=== PATIENT | female | born 1965 | race Caucasian/White ===

== ENCOUNTER 2017-04-23 19:56 | Observation (INO) | payer MEDICAID, OTHER ==
[2017-04-23] MEDS ORDERED: Nitroglycerin 0.4 MG Tab.SL SL ONE (20:01)
[2017-04-23] MEDS ORDERED: Aspirin 81 MG Tab.Chew PO ONE (20:01)
[2017-04-23] MEDS ORDERED: Ketorolac 30 MG/ML SDV IVPUSH ONE (20:54)
[2017-04-23] MEDS ORDERED: GI Cocktail Oral Solution 30 ML PO ONE (20:55)
--- NOTE | 2017-04-23 20:58 | EDM.PDOC ---
ED HPI GENERAL MEDICAL PROBLEM - General Chief Complaint: Chest Pain Stated Complaint: chest pain Time Seen by Provider: 04/23/17 19:59 Source of Information: Reports: Patient, Family History Limitations: Reports: No Limitations - History of Present Illness INITIAL COMMENTS - FREE TEXT/NARRATIVE: Patient brought to ER by after experiencing episode of diaphoresis and almost felt like she was going to pass out. Has had anterior chest pain all day. Worse with deep breath. Feels a bit short of breath. No wheeze/cough/URI complaints. No history of similar complaint. Past medical history significant for two spontaneous pneumothoraxes on left side years ago. This does not feel quite like that. She has felt a bit off since last . At that time her lower legs felt tight and achy. Equal bilaterally. Denies redness or swelling. That pain went away but she then had some right hip discomfort. She visited her chiropractor for that. The hip pain has also now resolved. Describes that chest pain as more of a tightness than actual pain. Discomfort does not radiate anywhere. Both ears feel funny too, she cannot describe it more than that. Not actual pain. No fevers/chills. No HEENT symptoms other than her ears feeling "funny". Respiratory as described above. SOB and discomfort does not change with positional changes. Hurts a bit more in the chest to take a deep breath. GI negative for changes as is . No focal neuro changes. Family history + for father who of IA at age 58, and mother who is now in her 80s and has had a stroke. Patient denies any other significant past family history. Former smoker, quit years ago. No one else sick at home[place] Very physical work, carries feed, etc. Notes that she usually has lower than average BP when it is checked. Chest Pain Score (Numeric/FACES): 3 - Related Data Allergies Allergy/AdvReac Type Severity Reaction Status Date / Time No Known Allergies Allergy Verified 04/23/17 20:28 Home Meds: Home Meds Amoxicillin/Clavulanate K [Augmentin 500 MG] 1 tab PO Q12H #20 tablet 06/12/15 [ Rx] Ciprofloxacin/Dexamethasone [Ciprodex Otic Susp] 7.5 ml EARLF BID #1 bottle [Rx] Ibuprofen 800 mg PO Q8H PRN #30 tablet 06/12/15 [Rx] Ibuprofen [Motrin] 400 mg PO Q6H PRN 06/12/15 [History] Past Medical History Respiratory History: Reports: Pneumothorax - Infectious Disease History Infectious Disease History: Reports: Chicken Pox, Pertussis (Whooping Cough) Social & Family History - Family History Cardiac: Reports: [place] Neurological: Reports: CVA - Tobacco Use Smoking Status *Q: Former Smoker Years of Tobacco use: 6 Packs/Tins Daily: 1 Used Tobacco, but Quit: Yes Month Tobacco Last Used: 0 - Caffeine Use Caffeine Use: Reports: Coffee - Alcohol Use Days Per Week of Alcohol Use: 2 Number of Drinks Per Day: 2 Total Drinks Per Week: 4 - Recreational Drug Use Recreational Drug Use: No ED ROS GENERAL - Review of Systems Review Of Systems: See Below Constitutional: Reports: Fatigue, Diaphoresis (describes it as near syncopal episode. ). Denies: Fever, Chills, Weakness, Night Sweats, Decreased Appetite, Weight Loss, Weight Gain HEENT: Reports: Ear Pain (not pain, feels "funny"). Denies: Ear Discharge, Eye Discharge, Eye Pain, Rhinitis, Sinus Problem, Throat Pain, Throat Swelling, Vertigo, Vision Change Respiratory: Reports: Shortness of Breath. Denies: Wheezing, Cough, Sputum, Hemoptysis Cardiovascular: Reports: Chest Pain. Denies: Edema, Lightheadedness, Orthopnea , Palpitations, PND, Syncope GI/Abdominal: Reports: No Symptoms : Reports: No Symptoms Musculoskeletal: Reports: No Symptoms Skin: Reports: No Symptoms Neurological: Reports: No Symptoms Psychiatric: Reports: No Symptoms Hematologic/Lymphatic: Reports: No Symptoms ED EXAM, GENERAL - Physical Exam Exam: See Below General Appearance: Alert, WD/WN, No Apparent Distress Eye Exam: Bilateral Eye: EOMI, Normal Inspection, PERRL Ears: Normal External Exam, Normal Canal, Hearing Grossly Normal, Normal TMs Nose: Normal Inspection Throat/Mouth: Normal Inspection, Normal Lips, Normal Teeth, Normal Gums, Normal Oropharynx, Normal Voice, No Airway Compromise Head: Atraumatic, Normocephalic Neck: Normal Inspection, Supple, Non-Tender, Full Range of Motion. No: Carotid Bruit, Lymphadenopathy (L), Lymphadenopathy (R) Respiratory/Chest: No Respiratory Distress, Lungs Clear, Normal Breath Sounds, No Accessory Muscle Use, Other (chest tender with palpation just lateral to left sternal border. Reproduces pain) Cardiovascular: Normal Peripheral Pulses, Regular Rate, Rhythm, No Edema, No Murmur Peripheral Pulses: 2+: Radial (L), Radial (R), Dorsalis Pedis (L), Dorsalis Pedis (R) GI/Abdominal: Normal Bowel Sounds, Soft, Non-Tender, No Distention, No Mass (Female) Exam: Deferred Rectal (Female) Exam: Deferred Back Exam: Normal Inspection. No: CVA Tenderness (L), CVA Tenderness (R), Paraspinal Tenderness, Vertebral Tenderness, Other Extremities: Normal Inspection, Normal Range of Motion, Non-Tender, No Pedal Edema, Normal Capillary Refill Neurological: Alert, Oriented, Normal Cognition, Normal Gait, Normal Reflexes, No Motor/Sensory Deficits Psychiatric: Normal Affect, Normal Mood Skin Exam: Warm, Dry, Intact, Normal Color EKG INTERPRETATION EKG Date: 04/23/17 Time: 19:59 Rhythm: NSR Rate (Beats/Min): 92 [place]: Normal P-Wave: Present QRS: Normal ST-T: Normal QT: Normal Comparison: NA - No Prior EKG Course - Vital Signs Last Recorded V/S: Last Vital Signs Temp 36.4 C 04/23/17 20:00 Pulse 72 04/23/17 20:41 Resp 20 04/23/17 20:00 BP 129/73 04/23/17 21:28 Pulse Ox 100 04/23/17 20:00 - Orders/Labs/Meds Orders: Active Orders 24 hr Category Date Time Status EKG Documentation Completion [RC] ASDIRECTED Care 04/23/17 20:00 Active Chest 2V [CR] Stat Exams 04/23/17 19:59 Taken UA W/MICROSCOPIC [URIN] Stat Lab 04/23/17 19:59 Uncollected Sodium Chloride 0.9% [Saline Flush] Med 04/23/17 19:59 Active 10 ml FLUSH ASDIRECTED PRN Saline Lock Insert [OM.PC] Stat Oth 04/23/17 19:59 Ordered Medication Orders Sodium Chloride (Saline Flush) 10 ml FLUSH ASDIRECTED PRN PRN Reason: Keep Vein Open Last Admin: 04/23/17 21:12 Dose: 10 ml Labs: Laboratory Tests 04/23/17 04/23/1704/23/17 Range/Units 20:10 20:10 20:10 WBC 6.6 (4.0-10.2) K/uL RBC 4.43 (3.77-5.09) M/uL Hgb 13.3 (11.7-15.5) g/dL Hct 39.9 (34.0-46.0) % MCV 90.1 (84.0-98.0) fL MCH 30.0 (28.2-33.3) pg MCHC 33.3 (31.7-36.0) g/dL RDW 13.9 (11.2-14.1) % Plt Count 312 (150-350) K/uL Neut % (Auto) 39.6 L (45.0-80.0) % Lymph % (Auto) 48.9 (10.0-50.0) % Daniels % (Auto) 8.3 (2.0-14.0) % Eos % (Auto) 2.9 (0.0-5.0) % Baso % (Auto) 0.3 (0.0-2.0) % Neut # (Auto) 2.63 (1.40-7.00) K/uL Lymph # (Auto) 3.25 (0.50-3.50) K/uL Daniels # (Auto) 0.55 (0.00-1.00) K/uL Eos # (Auto) 0.19 (0.00-0.50) K/uL Baso # (Auto) 0.02 (0.00-0.20) K/uL PT 10.2 (9.8-11.7) SEC INR 1.0 D-Dimer, Quantitative (0-400) ng/mL Sodium 140 (136-145) mmol/L Potassium 4.2 (3.5-5.1) mmol/L Chloride 104 (98-107) mmol/L Carbon Dioxide 29.3 (21.0-32.0) mmol/L BUN 11 (7-18) mg/dL Creatinine 1.16 (0.51-1.17) mg/dL Est Cr Clr Drug Dosing 51.63 mL/min Estimated GFR (MDRD) 49 mL/min Glucose 96 (74-106) mg/dL Calcium 8.9 (8.5-10.1) mg/dL Total Bilirubin 0.5 (0.2-1.0) mg/dL AST 18 (15-37) U/L ALT 12 (12-78) U/L Alkaline Phosphatase 77 (46-116) IU/L Creatine Kinase 156 (26-308) U/L Creatine Kinase Index 1.0 (0.0-2.5) % CK-MB (CK-2) 1.60 (0.00-3.60) ng/mL Troponin I 0.000 (0.000-0.056) ng/mL NT-Pro-B Natriuret Pep 31 (0-125) pg/mL Total Protein 7.1 (6.4-8.2) g/dL Albumin 3.8 (3.4-5.0) g/dL 04/23/17 Range/Units 20:10 WBC (4.0-10.2) K/uL RBC (3.77-5.09) M/uL Hgb (11.7-15.5) g/dL Hct (34.0-46.0) % MCV (84.0-98.0) fL MCH (28.2-33.3) pg MCHC (31.7-36.0) g/dL RDW (11.2-14.1) % Plt Count (150-350) K/uL Neut % (Auto) (45.0-80.0) % Lymph % (Auto) (10.0-50.0) % Daniels % (Auto) (2.0-14.0) % Eos % (Auto) (0.0-5.0) % Baso % (Auto) (0.0-2.0) % Neut # (Auto) (1.40-7.00) K/uL Lymph # (Auto) (0.50-3.50) K/uL Daniels # (Auto) (0.00-1.00) K/uL Eos # (Auto) (0.00-0.50) K/uL Baso # (Auto) (0.00-0.20) K/uL PT (9.8-11.7) SEC INR D-Dimer, Quantitative < 100 (0-400) ng/mL Sodium (136-145) mmol/L Potassium (3.5-5.1) mmol/L Chloride (98-107) mmol/L Carbon Dioxide (21.0-32.0) mmol/L BUN (7-18) mg/dL Creatinine (0.51-1.17) mg/dL Est Cr Clr Drug Dosing mL/min Estimated GFR (MDRD) mL/min Glucose (74-106) mg/dL Calcium (8.5-10.1) mg/dL Total Bilirubin (0.2-1.0) mg/dL AST (15-37) U/L ALT (12-78) U/L Alkaline Phosphatase (46-116) IU/L Creatine Kinase (26-308) U/L Creatine Kinase Index (0.0-2.5) % CK-MB (CK-2) (0.00-3.60) ng/mL Troponin I (0.000-0.056) ng/mL NT-Pro-B Natriuret Pep (0-125) pg/mL Total Protein (6.4-8.2) g/dL Albumin (3.4-5.0) g/dL Meds: Medications Generic Name Dose Route Start Last Admin Trade Name Freq PRN Reason Stop Dose Admin Sodium Chloride 10 ml 04/23/17 19:59 04/23/17 21:12 Saline Flush FLUSH 10 ml ASDIRECTED PRN Administration Keep Vein Open Discontinued Medications Generic Name Dose Route Start Last Admin Trade Name Freq PRN Reason Stop Dose Admin Al Hydroxide/Mg Hydroxide 30 ml 04/23/17 20:55 04/23/17 21:12 Gi Cocktail PO 04/23/17 20:56 30 ml ONETIME ONE Administration Aspirin 324 mg 04/23/17 20:01 04/23/17 20:14 Aspirin PO 04/23/17 20:02 324 mg ONETIME ONE Administration Ketorolac Tromethamine 30 mg 04/23/17 20:54 04/23/17 21:12 Toradol IVPUSH 04/23/17 20:55 30 mg ONETIME ONE Administration Nitroglycerin 0.4 mg 04/23/17 20:01 04/23/17 20:14 Nitrostat SL 04/23/17 20:02 0.4 mg ONETIME ONE Administration - Radiology Interpretation Free Text/Narrative:: Chest xray did not show any focal infiltrates or noted pneumo - Re-Assessments/Exams Free Text/Narrative Re-Assessment/Exam: 04/23/17 22:01 All labs within normal range, including DDimer/Trop/CKMB. BP improved after single Nitro SL, however no change in pain. GI cocktail given , no obvious changes. Toradol given. EKG showed no ST changes. Pain reproducible with pressure applied near left sternal border. Suspect musculoskeletal pain more so than cardiac/lung/GI at this time. BP was elevated when first in ER, but that has significantly improved without seeing improvement in pain complaint. Patient may have mild viral prodrome given the general achiness that started 4 days ago. No reported tick exposure from this fall. No pneumo noted on chest film, although it could be possible that she could have a small one that does not show up on the film. Patient is agreeable to being admitted on observation. Will continue cardiac monitoring. Observe for changes. Repeat labs in AM. Departure - Departure Time of Disposition: 22:07 Disposition: Refer to Observation Clinical Impression: Atypical chest pain, Shortness of breath - Discharge Information Referrals: PCP,None [Primary Care Provider] - Forms: ED Department Discharge - Problem List & Annotations (1) Atypical chest pain SNOMED Code(s): 282155013 Code(s): R07.89 - OTHER CHEST PAIN Status: Acute Priority: High Current Visit: Yes Onset Date: 04/23/17 Annotation/Comment:: Uncertain etiology. Initial workup unremarkable. Pain is exacerbated by direct pressure on left chest wall. May be musculo-skeletal in origin. No evidence of repeat pneumo on chest xray. (2) Shortness of breath SNOMED Code(s): 435500513 Code(s): R06.02 - SHORTNESS OF BREATH Status: Acute Priority: Medium Current Visit: Yes Onset Date: ~04/23/17 Annotation/Comment:: Uncertain etiology. Remote smoking history but quit a long time ago. No history of athma. DDimer negative. Has good sats and normal resp rate on room air. - Problem List Review Problem List Initiated/Reviewed/Updated: Yes - My Orders Last 24 Hours: My Active Orders 04/23/17 19:59 Chest 2V [CR] Stat UA W/MICROSCOPIC [URIN] Stat Sodium Chloride 0.9% [Saline Flush] 10 ml FLUSH ASDIRECTED PRN Saline Lock Insert [OM.PC] Stat 04/23/17 20:00 EKG Documentation Completion [RC] ASDIRECTED - Assessment/Plan Admission H&P: Please use this note as an admission H&P Last 24 Hours: My Active Orders 04/23/17 19:59 Chest 2V [CR] Stat UA W/MICROSCOPIC [URIN] Stat Sodium Chloride 0.9% [Saline Flush] 10 ml FLUSH ASDIRECTED PRN Saline Lock Insert [OM.PC] Stat 04/23/17 20:00 EKG Documentation Completion [RC] ASDIRECTED Assessment:: Chest pain, sensation of SOB. Etiology uncertain. Plan: Admit to Obs. Continue cardiac monitoring. Repeat labs in AM. Observe for changes. Consider additional imaging such as chest CT if pain does not improve by morning to more fully rule out pneumothorax/other causes.
[2017-04-23] MEDS: Sodium Chloride 0.9% 10 ML Syringe FLUSH PRN (21:12)
[2017-04-23] MEDS ORDERED: Acetaminophen 325 MG Tab PO PRN (22:18)
[2017-04-23] MEDS ORDERED: predniSONE 20 MG Tab PO ONE (22:20)
[2017-04-24 07:52] LABS: CHLORIDE,CL 105 mmol/L (98-107); SODIUM,NA 138 mmol/L (136-145)
[2017-04-24] MEDS: Sodium Chloride 0.9% 10 ML Syringe FLUSH PRN (08:54)
[2017-04-24 08:58] VITALS: BP 116/68
--- NOTE | 2017-04-24 11:08 | PCM.DCSUM1 ---
Discharge Summary - Hospital Course Brief History: Observed overnight after experiencing atypical chest pain and hypertension - Discharge Data Discharge Date: 04/24/17 Discharge Disposition: Home, Self-Care 01 Condition: Good - Discharge Diagnosis/Problem(s) (1) Atypical chest pain SNOMED Code(s): 435072716 ICD Code: R07.89 - OTHER CHEST PAIN Status: Acute Priority: High Current Visit: Yes Onset Date: 04/23/17 Problem Details: Significantly improved at this time but still present. Uncertain etiology. Initial workup unremarkable. Pain is exacerbated by direct pressure on left chest wall. May be musculo-skeletal in origin. Consider costochondritis. No evidence of repeat pneumo on chest xray. Negative serial Troponin/CKMB. DDimer normal. EKG normal. (2) Shortness of breath SNOMED Code(s): 922758027 ICD Code: R06.02 - SHORTNESS OF BREATH Status: Acute Priority: Medium Current Visit: Yes Onset Date: ~04/23/17 Problem Details: Improved at this time. Patient denies current SOB - Patient Summary/Data Complications: None Hospital Course: Gradual improvement of chest pain and SOB overnight. Still has some constant discomfort that is just to left of sternum. SOB resolved. Pain exacerbated with direct pressure/reproduced. No changes noted on monitor. BP remained normal. Repeat labs unremarkable. - Patient Instructions Diet: Usual Diet as Tolerated Activity: No Lifting Over 10 Pounds, Rest and Relax Today Driving: May Drive Today Showering/Bathing: May Shower Other/Special Instructions: Follow up Sunday at 2pm for recheck and to discuss if any additional workup is indicated. You have an appointment at our hospital clinic. - Discharge Plan Home Medications: Home Meds Ibuprofen [Motrin] 400 mg PO Q6H PRN 06/12/15 [History] Acetaminophen [Tylenol] 650 mg PO Q4H PRN 04/23/17 [History] Patient Handouts: Costochondritis, [id number], Nonspecific Chest Pain Forms: ED Department Discharge Referrals: PCP,None [Primary Care Provider] - - Discharge Summary/Plan Comment DC Time >30 min.: No Discharge Summary/Plan Comment: To follow up as needed if symptoms return/worsen. Otherwise to follow up Sunday at hospital clinic for re-evaluation. - General Info Date of Service: 04/24/17 Admission Dx/Problem (Free Text: Chest pain, SOB. Functional Status: Reports: Pain Controlled Numeric/FACES Score: 2 - Review of Systems General: Reports: No Symptoms HEENT: Reports: No Symptoms Pulmonary: Reports: No Symptoms. Denies: Shortness of Breath Cardiovascular: Reports: Chest Pain. Denies: Palpitations, Dyspnea on Exertion , Orthopnea, Edema, Lightheadedness Gastrointestinal: Reports: No Symptoms Genitourinary: Reports: No Symptoms Musculoskeletal: Reports: No Symptoms Skin: Reports: No Symptoms Neurological: Reports: No Symptoms Psychiatric: Reports: No Symptoms - Patient Data Vitals - Most Recent: Last Vital Signs Temp 36.7 C 04/24/17 08:00 Pulse 71 04/24/17 08:00 Resp 17 04/24/17 08:00 BP 116/68 04/24/17 08:00 Pulse Ox 98 04/24/17 08:00 Weight - Most Recent: 69.127 kg I&O - Last 24 hours: Intake & Output 04/23/17 04/24/17 04/24/17 22:59 06:59 14:59 Intake Total 200 240 Output Total 350 Balance -150 240 Lab Results - Last 24 hrs: Laboratory Results - last 24 hr 04/24/17 04/24/17 Range/Units 07:05 07:05 WBC 4.3 (4.0-10.2) K/uL RBC 4.44 (3.77-5.09) M/uL Hgb 13.1 (11.7-15.5) g/dL Hct 40.4 (34.0-46.0) % MCV 91.0 (84.0-98.0) fL MCH 29.5 (28.2-33.3) pg MCHC 32.4 (31.7-36.0) g/dL RDW 14.0 (11.2-14.1) % Plt Count 282 (150-350) K/uL Neut % (Auto) 80.6 H (45.0-80.0) % Lymph % (Auto) 18.5 (10.0-50.0) % [place] % (Auto) 0.9 L (2.0-14.0) % Eos % (Auto) 0.0 (0.0-5.0) % Baso % (Auto) 0.0 (0.0-2.0) % Neut # (Auto) 3.44 (1.40-7.00) K/uL Lymph # (Auto) 0.79 (0.50-3.50) K/uL [place] # (Auto) 0.04 (0.00-1.00) K/uL Eos # (Auto) 0.00 (0.00-0.50) K/uL Baso # (Auto) 0.00 (0.00-0.20) K/uL Sodium 138 (136-145) mmol/L Potassium 4.2 (3.5-5.1) mmol/L Chloride 105 (98-107) mmol/L Carbon Dioxide 25.2 (21.0-32.0) mmol/L BUN 12 (7-18) mg/dL Creatinine 0.71 (0.51-1.17) mg/dL Est Cr Clr Drug Dosing 84.35 mL/min Estimated GFR (MDRD) > 60 mL/min Glucose 145 H (74-106) mg/dL Calcium 8.8 (8.5-10.1) mg/dL Total Bilirubin 0.5 (0.2-1.0) mg/dL AST 15 (15-37) U/L ALT 10 L (12-78) U/L Alkaline Phosphatase 65 (46-116) IU/L Troponin I 0.000 (0.000-0.056) ng/mL Total Protein 6.6 (6.4-8.2) g/dL Albumin 3.4 (3.4-5.0) g/dL Med Orders - Current: Current Medications Acetaminophen (Tylenol) 650 mg PO Q6H PRN PRN Reason: Pain Sodium Chloride (Saline Flush) 10 ml FLUSH ASDIRECTED PRN PRN Reason: Keep Vein Open Last Admin: 04/24/17 08:54 Dose: 10 ml Discontinued Medications Al Hydroxide/Mg Hydroxide (Gi Cocktail) 30 ml PO ONETIME ONE Stop: 04/23/17 20:56 Last Admin: 04/23/17 21:12 Dose: 30 ml Aspirin (Aspirin) 324 mg PO ONETIME ONE Stop: 04/23/17 20:02 Last Admin: 04/23/17 20:14 Dose: 324 mg Ketorolac Tromethamine (Toradol) 30 mg IVPUSH ONETIME ONE Stop: 04/23/17 20:55 Last Admin: 04/23/17 21:12 Dose: 30 mg Nitroglycerin (Nitrostat) 0.4 mg SL ONETIME ONE Stop: 04/23/17 20:02 Last Admin: 04/23/17 20:14 Dose: 0.4 mg Prednisone (Prednisone) 40 mg PO ONETIME ONE Stop: 04/23/17 22:21 Last Admin: 04/23/17 22:37 Dose: 40 mg - Exam General: Reports: Alert, Oriented, Cooperative, No Acute Distress HEENT: Reports: Pupils Equal, Pupils Reactive, EOMI, Mucous Membr. Moist/[place] Neck: Reports: Supple Lungs: Reports: Clear to Auscultation, Normal Respiratory Effort Cardiovascular: Reports: Regular Rate, Regular Rhythm GI/Abdominal Exam: Normal Bowel Sounds, Soft, Non-Tender, No Distention (Female) Exam: Deferred Rectal (Female) Exam: Deferred Back Exam: Reports: Normal Inspection, Full Range of Motion Extremities: Normal Inspection, Normal Range of Motion, Non-Tender, No Pedal Edema, Normal Capillary Refill Skin: Reports: Warm Neurological: Reports: No New Focal Deficit Psy/Mental Status: Reports: Alert, Normal Affect, Normal Mood Physical Findings Comments:: Palpation of chest wall to left of sternum exacerbates pain slightly. Reproduces complaint. *Q Meaningful Use (DIS) - VTE *Q VTE Criteria *Q: - Stroke *Q Stroke Criteria *Q: - AMI *Q AMI Criteria *Q:
== END 2017-04-24 11:40 | disposition home or self-care (01) ==
LOC: LL.ED 19:56 → LL.MS 21:45
PROVIDERS: ADMIT Emergency Medicine; ATTEND Emergency Medicine
DX: R07.89 Other chest pain (principal); R06.02 Shortness of breath; Z79.899 Other long term (current) drug therapy; Z79.2 Long term (current) use of antibiotics; Z87.891 Personal history of nicotine dependence
CPT/HCPCS: 36415; 71020; 80053; 81001; 82550; 82553; 83880; 84484; 85025; 85379; 85610; 93005; 96374; 99285; A9270; G0378; J1885; J7050

== ENCOUNTER 2020-07-15 11:12 | Day surgery (SDC) | payer MEDICAID ==
[~2020-07-15 11:12] MED LIST: Lactated Ringers 1,000 ML IV SCH; Midazolam 1 MG/ML 2 ML SDV ONE; Propofol 200 MG/20 ML SDV ONE; Sodium Chloride 0.9% 10 ML Syringe FLUSH PRN
--- NOTE | 2020-07-15 11:57 | PCM.HPR ---
H & P Addendum review - H & P Addendum Review Date of Original H & P: 07/06/20 Date Reviewed: 07/15/20 Time Reviewed: 11:56 Patient was Examined: No Changes
--- NOTE | 2020-07-15 12:41 | PCM.OPNOTE ---
- General Post-Op/Procedure Note Date of Surgery/Procedure: 07/15/20 Operative Procedure(s): Colonoscopy with polypectomy Findings: 2 small sig polyps Pre Op Diagnosis: FH Colon Ca; hx polyps Post-Op Diagnosis: Same Anesthesia Technique: MAC Primary Surgeon: Roberto Sevilla Anesthesia Provider: Olga Chicas Complications: None Condition: Good
--- NOTE | 2020-07-15 14:14 | OR ---
Date of Procedure: 07/15/2020 PREOPERATIVE DIAGNOSIS: Family history of colon cancer and personal history of colon polyps. POSTOPERATIVE DIAGNOSIS: Colon polyps. PROCEDURE: Colonoscopy with polypectomy. ANESTHESIA: IV sedation. PROCEDURE IN DETAIL: Patient was brought to the procedure room where she was placed on her left side and IV sedation was administered. Digital rectal exam was performed, which was normal. Colonoscope was inserted and advanced to the level of the cecum without difficulty. Cecal position was confirmed by identifying the appendiceal lumen and ileocecal valve. Prep was good and surfaces were well visualized. Upon withdrawing the scope, the ascending, transverse, and descending colon were normal in appearance. Sigmoid colon has 2 adjacent sessile polyps, 5 mm in diameter, located 20 cm from the anal verge. These were both removed with the hot biopsy forceps. The rectum was normal and retroflexion was normal. Air was removed and the scope withdrawn. Patient tolerated the procedure well, returned to recovery in stable condition. Patient will be contacted with the pathology report when it returns. The polyps are small and we will recommend that she undergo a repeat colonoscopy again in 5 years. ALEX MOLINA MD /[id number]
[2020-07-15 15:59] VITALS: BP 112/68; PULSE 57
== END 2020-07-15 13:30 | disposition home or self-care (01) ==
LOC: LL.SDS 11:12
PROVIDERS: ATTEND Surgery
DX: Z12.11 Encounter for screening for malignant neoplasm of colon (principal); K63.5 Polyp of colon; E78.5 Hyperlipidemia, unspecified; Z80.0 Family history of malignant neoplasm of digestive organs; Z01.812 Encounter for preprocedural laboratory examination; Z20.822 Contact with and (suspected) exposure to COVID-19
CPT/HCPCS: 00812; 45384; 87635; J2250; J2704; J7120; U0002